=== PATIENT | male | born 2000 | race Caucasian/White ===

== ENCOUNTER 2024-10-28 14:52 | Emergency (ER) | payer SELFPAY ==
[~2024-10-28] VITALS: Ht 162.6 cm; Wt 80.0 kg
[2024-10-28 15:23] VITALS: TEMP 98.8; O2SAT 100
[2024-10-28 17:11] VITALS: BP 115/70; PULSE 92; RESP 16
[2024-10-28] MEDS: KETOROLAC 30MG/ML VIAL IM ONE (17:11)
[2024-10-28 17:24] LABS: BASOPHILS % 0.3 % (0.0-2.0); EOSINOPHILS % 0.4 % (0.0-5.0); HEMATOCRIT. 44.6 % (42.0-52.0); HEMOGLOBIN. 14.8 g/dL (14.0-18.0); LYMPHOCYTES % 10.3 % (20.0-50.0); MEAN CORPUSCULAR HEMOGLOBIN 27.7 pg (28.0-32.0); MEAN CORPUSCULAR HGB CONC 33.1 g/dL (31.0-37.0); MEAN CORPUSCULAR VOLUME 83.8 fL (80.0-94.0); MEAN PLATELET VOLUME 8.7 fl (7.4-10.4); MONOCYTES % 7.1 % (2.0-8.0); NEUTROPHILS % 81.9 % (40.0-76.0); PLATELET 240 x1000/uL (130-400); RED BLOOD CELL COUNT 5.32 mill/uL (4.7-6.1); RED CELL DISTRIBUTION WIDTH 13.8 % (11.6-14.6); WHITE BLOOD COUNT 12.3 x1000/uL (4.5-11.0)
[2024-10-28 17:29] LABS: CHLORIDE 106 mEq/L (98-107)
[2024-10-28 17:30] LABS: CARBON DIOXIDE 28 mEq/L (21-32); POTASSIUM 3.8 mEq/L (3.5-5.1); SODIUM 140 mEq/L (136-145)
[2024-10-28 17:31] LABS: CALCIUM 9.6 mg/dL (8.7-10.4)
[2024-10-28 17:36] LABS: GLUCOSE 97 mg/dL (70-105); UREA NITROGEN BLOOD 11 mg/dL (9-23)
[2024-10-28] MEDS: ONDANSETRON 4MG ODT PO ONE (17:53)
== END 2024-10-28 17:12 | disposition left against medical advice (07) ==
LOC: ER 14:52
DX: R10.31 Right lower quadrant pain (principal)
CPT/HCPCS: 99283; 80048; 83690; 85025; 36415; 96372; Q0162; J1885

== ENCOUNTER 2025-10-12 14:25 | Emergency (ER) | payer MEDICAID ==
[~2025-10-12] VITALS: Ht 167.6 cm; Wt 80.0 kg
[2025-10-12 14:59] VITALS: TEMP 36.9; O2SAT 100
[2025-10-12] MEDS: IBUPROFEN 600MG TABLET PO ONE (15:49)
[2025-10-12] MEDS ORDERED: IBUP-1455 MT (15:55)
[2025-10-12] MEDS ORDERED: BENZ1LOZ73 MM (15:55)
[2025-10-12] MEDS ORDERED: GUAI-450 MT (15:55)
[2025-10-12 17:14] VITALS: BP 133/82; PULSE 70; RESP 12; O2SAT 100
== END 2025-10-12 17:16 | disposition home or self-care (01) ==
LOC: ER 14:25
DX: B34.9 Viral infection, unspecified (principal); Z79.899 Other long term (current) drug therapy
CPT/HCPCS: 71045; 99283